=== PATIENT | male | born 1965 | race Caucasian/White ===

== ENCOUNTER → 2018-01-12 | Outpatient (CLI) | payer MEDICARE, OTHER ==
[~2018-01-12] MED LIST: ASPI81CH PO; ASPI81EC; ASPI81EC PO; CLON1; CLON1 PO; CYAN500 PO; EZET10-10; FISH1000 PO; GEMF600 PO; GILENYA PO; GILENYA0.5 MG PO; LEVSOD50; LEVSOD75 PO; LOXA10; OXYACE5T PO; PERP8 PO; VITAMIN D-32000 UNI1 PO; VITAMIN D3 PO
[2018-01-12 13:01] LABS: Bilirubin, Urine Neg (Neg); Blood, Urine Neg (Neg); Glucose Qualitative, Urine Neg (Neg); Ketones, Urine Neg (Neg); Leukocyte Esterase, Urine Neg (Neg); Nitrite, Urine Neg (Neg); Protein, Urine Neg (Neg); Specific Gravity, Urine 1.015 (1.003-1.022); Urobilinogen, Urine NORM (Normal)
[2018-01-12 13:21] LABS: Appearance, Urine Clear (Clear); Color, Urine Pale Yellow (P-Yellow)
== END | disposition home or self-care (01) ==
LOC: LAB 12:11
DX: R32 Unspecified urinary incontinence (principal)
CPT/HCPCS: 81003

== ENCOUNTER 2019-03-31 13:41 | Emergency (ER) | payer MEDICARE, OTHER ==
[~2019-03-31] VITALS: Ht 170.2 cm; Wt 72.6 kg
[2019-03-31 15:01] LABS: Anion Gap 7 mmol/L (6-16); Blood Urea Nitrogen 10 mg/dL (8-24); Bun/Creatinine Ratio 22.1 (12.0-20.0); CO2, Blood 23 mmol/L (21-32); Calcium, Blood 8.4 mg/dL (8.5-10.1); Chloride, Blood 107 mmol/L (98-108); Creatinine, Blood 0.45 mg/dL (0.60-1.20); Glomerular Filtration Rate >60 (60-); Glucose, Blood 125 mg/dL (70-99); Potassium, Blood 4.1 mmol/L (3.5-5.5); Sodium, Blood 137 mmol/L (136-145)
[2019-03-31 15:09] LABS: Source, Urine Catheter
[2019-03-31 15:12] LABS: Bilirubin, Urine Neg (Neg); Blood, Urine 5+ (Neg); Glucose Qualitative, Urine Neg (Neg); Ketones, Urine 1+ (Neg); Leukocyte Esterase, Urine 3+ (Neg); Nitrite, Urine Pos (Neg); Protein, Urine 3+ (Neg); Specific Gravity, Urine 1.005 (1.003-1.022); Urobilinogen, Urine NORM (Normal); pH, Urine 6.5 (5.0-8.0)
[2019-03-31 15:21] LABS: Appearance, Urine Cloudy (Clear); Color, Urine Yellow (P-Yellow)
[2019-03-31 15:26] LABS: Red Blood Cells, Urine 25-50 /hpf (0-2); White Blood Cells, Urine 50-100 /hpf (0-5)
[2019-03-31 15:27] LABS: Bacteria Mod /hpf; Squamous Epithelial Cells Not Seen /hpf (Few)
[2019-03-31] MEDS ORDERED: CEFD300 PO (15:31)
[2019-03-31] MEDS ORDERED: CLONAZEPAM TAB 1MG (20:43)
[2019-03-31] MEDS ORDERED: Nortriptyline H50 MG PO (20:43)
[2019-03-31] MEDS ORDERED: BACL20 (20:44)
[2019-03-31] MEDS ORDERED: MORP30ER (20:45)
[2019-03-31] MEDS ORDERED: ATORVASTATIN CA10 MG (20:45)
[2019-03-31] MEDS ORDERED: ATOR10 PO (20:45)
[2019-03-31] MEDS ORDERED: OXYC5 (20:46)
[2019-03-31] MEDS ORDERED: TRIDERM28.4 GM (20:47)
== END 2019-03-31 17:30 | disposition home or self-care (01) ==
LOC: ER 13:41
PROVIDERS: Emergency Medicine
DX: N39.0 Urinary tract infection, site not specified (principal); Z88.0 Allergy status to penicillin; Z88.8 Allergy status to other drugs, medicaments and biological substances; Z79.899 Other long term (current) drug therapy; Z79.82 Long term (current) use of aspirin; E03.9 Hypothyroidism, unspecified; F17.200 Nicotine dependence, unspecified, uncomplicated
CPT/HCPCS: 80048; 81001; 87077; 87086; 87186; 99283

== ENCOUNTER → 2019-04-12 | Outpatient (CLI) | payer MEDICARE, OTHER ==
[~2019-04-12] MED LIST changes: +ATOR10 PO; +ATORVASTATIN CA10 MG; +BACL20; +CEFD300 PO; +CLONAZEPAM TAB 1MG; +MORP30ER; +Nortriptyline H50 MG PO; +OXYC5; +TRIDERM28.4 GM
== END | disposition home or self-care (01) ==
LOC: LAB SHORT 18:32 → LAB 18:32
DX: N39.0 Urinary tract infection, site not specified (principal)
CPT/HCPCS: 87086

== ENCOUNTER → 2020-02-23 | Outpatient (CLI) | payer MEDICARE, OTHER ==
[2020-02-23 11:42] LABS: BASOPHILS ABSOLUTE AUTO 0.06 K/mm3 (0.00-0.23); BASOPHILS PERCENT AUTO 1 % (0-2); EOSINOPHILS ABSOLUTE AUTO 0.56 K/mm3 (0.00-0.68); EOSINOPHILS PERCENT AUTO 8 % (0-6); Hematocrit 40.2 % (37.0-53.0); Hemoglobin 12.6 g/dL (13.5-17.5); IMMATURE GRAN ABSOLUTE AUTO 0.02 K/mm3 (0.00-0.10); IMMATURE GRAN PERCENT AUTO 0 % (0-1); LYMPHOCYTES ABSOLUTE AUTO 2.02 K/mm3 (0.84-5.20); LYMPHOCYTES PERCENT AUTO 28 % (21-46); MONOCYTES ABSOLUTE AUTO 0.66 K/mm3 (0.16-1.47); MONOCYTES PERCENT AUTO 9 % (4-13); Mean Corpuscular HGB 28.5 pg (26.0-34.0); Mean Corpuscular HGB Conc 31.3 g/dL (31.5-36.5); Mean Corpuscular Volume 91 fL (80-100); Mean Platelet Volume 10.9 fL (9.1-12.4); NEUTROPHILS ABSOLUTE AUTO 3.86 K/mm3 (1.96-9.15); NEUTROPHILS PERCENT AUTO 54 % (41-73); Platelet Count 245 K/mm3 (150-400); RDW Coefficient Variation 14.7 % (11.7-14.2); RDW Standard Deviation 49.2 fL (35.1-46.3); Red Blood Cell Count 4.42 M/mm3 (4.30-5.90); White Blood Cell Count 7.18 K/mm3 (4.00-11.30)
== END | disposition home or self-care (01) ==
LOC: LAB 10:06 → LAB SHORT 10:06
PROVIDERS: Family Medicine
DX: D64.9 Anemia, unspecified (principal)
CPT/HCPCS: 85025

== ENCOUNTER → 2020-11-28 | Outpatient (CLI) | payer MEDICARE, OTHER ==
[2020-11-28 14:26] LABS: Cholesterol 139 mg/dL (50-200); HDL Cholesterol 47 mg/dL (>39); LDL/HDL RATIO 1.4; Low Density Lipoprotein Chol 66 mg/dL (0-110); Triglycerides 132 mg/dL (30-160); Very Low Density Lipoprot Chol 26 mg/dL (6-32)
== END | disposition home or self-care (01) ==
LOC: LAB 11:54 → LAB SHORT 11:54
PROVIDERS: Family Medicine
DX: E03.9 Hypothyroidism, unspecified (principal)
CPT/HCPCS: 80061; 84443

== ENCOUNTER → 2021-05-12 | Outpatient (CLI) | payer MEDICARE, OTHER ==
[2021-05-12 16:24] LABS: Hematocrit 37.9 % (37.0-53.0); Hemoglobin 12.1 g/dL (13.5-17.5); Mean Corpuscular HGB 28.9 pg (26.0-34.0); Mean Corpuscular HGB Conc 31.9 g/dL (31.5-36.5); Mean Corpuscular Volume 91 fL (80-100); Mean Platelet Volume 11.7 fL (9.1-12.4); Platelet Count 231 K/mm3 (150-400); RDW Coefficient Variation 14.8 % (11.7-14.2); RDW Standard Deviation 49.8 fL (35.1-46.3); Red Blood Cell Count 4.18 M/mm3 (4.30-5.90); White Blood Cell Count 5.43 K/mm3 (4.00-11.30)
[2021-05-12 18:22] LABS: Alanine Aminotransfer (ALT/SGP 37 U/L (12-78); Albumin, Blood 3.1 g/dL (3.4-5.0); Albumin/Globulin Ratio 0.7 (0.8-1.8); Alk Phos 123 U/L (50-136); Anion Gap 4 mmol/L (6-16); Aspartate Aminotrans (AST/SGOT 30 U/L (12-37); Bilirubin, Total 0.3 mg/dL (0.1-1.0); Blood Urea Nitrogen 9 mg/dL (8-24); Bun/Creatinine Ratio 20.8 (12.0-20.0); CO2, Blood 26 mmol/L (21-32); Calcium, Blood 9.1 mg/dL (8.5-10.1); Chloride, Blood 109 mmol/L (98-108); Creatinine, Blood 0.43 mg/dL (0.60-1.20); Globulin, Blood 4.4 g/dL (2.2-4.0); Glomerular Filtration Rate >60 (60-); Glucose, Blood 126 mg/dL (70-99); Potassium, Blood 4.1 mmol/L (3.5-5.5); Sodium, Blood 139 mmol/L (136-145); Total Protein, Blood 7.5 g/dL (6.4-8.2)
== END | disposition home or self-care (01) ==
LOC: LAB SHORT 15:21
PROVIDERS: Family Medicine
DX: R73.9 Hyperglycemia, unspecified (principal); Z79.899 Other long term (current) drug therapy
CPT/HCPCS: 80053; 83036; 85027

== ENCOUNTER 2022-01-18 09:47 | Inpatient (IN) | payer MEDICARE, OTHER ==
[~2022-01-18] VITALS: Ht 177.8 cm; Wt 97.5 kg
[~2022-01-18 09:47] MED LIST changes: +BACL10 PO; -BACL20; +CEFP200 PO; +LEVSOD112 PO; -LEVSOD75 PO; -MORP30ER; +MORP30ER PO; -OXYC5; +OXYC5 PO; -PERP8 PO; +Trilafon PO
[2022-01-18 11:06] LABS: Hematocrit 29.8 % (37.0-53.0); Hemoglobin 9.9 g/dL (13.5-17.5); Mean Corpuscular HGB 28.4 pg (26.0-34.0); Mean Corpuscular HGB Conc 33.2 g/dL (31.5-36.5); Mean Corpuscular Volume 85 fL (80-100); Mean Platelet Volume 10.1 fL (9.1-12.4); Platelet Count 322 K/mm3 (150-400); RDW Coefficient Variation 16.2 % (11.7-14.2); RDW Standard Deviation 50.2 fL (35.1-46.3); Red Blood Cell Count 3.49 M/mm3 (4.30-5.90); White Blood Cell Count 33.94 K/mm3 (4.00-11.30)
[2022-01-18 11:10] LABS: Source, Urine Foley catheter
[2022-01-18 11:19] LABS: Appearance, Urine Cloudy (Clear); Bilirubin, Urine Neg (Neg); Blood, Urine 5+ (Neg); Color, Urine Yellow (P-Yellow); Glucose Qualitative, Urine Neg (Neg); Ketones, Urine Neg (Neg); Leukocyte Esterase, Urine 3+ (Neg); Nitrite, Urine Neg (Neg); Protein, Urine 3+ (Neg); Specific Gravity, Urine 1.015 (1.003-1.022); Urobilinogen, Urine NORM (Normal)
[2022-01-18 11:33] LABS: Bacteria Many /hpf; Red Blood Cells, Urine 25-50 /hpf (0-2); Squamous Epithelial Cells Few /hpf (Few); White Blood Cells, Urine 50-100 /hpf (0-5)
[2022-01-18 11:35] LABS: Albumin, Blood 2.1 g/dL (3.4-5.0); Albumin/Globulin Ratio 0.4 (0.8-1.8); Bilirubin, Total 0.6 mg/dL (0.1-1.0); Bun/Creatinine Ratio 13.2 (12.0-20.0); Creatinine, Blood 1.82 mg/dL (0.60-1.20); Globulin, Blood 4.9 g/dL (2.2-4.0); Potassium, Blood 4.9 mmol/L (3.5-5.5)
[2022-01-18 11:41] LABS: BAND PERCENT MAN 26 % (0-8); BASOPHILS PERCENT MAN 0 % (0-2); EOSINOPHILS PERCENT MAN 0 % (0-6); LYMPHOCYTES ABSOLUTE MAN 2.03 K/mm3 (0.84-5.20); LYMPHOCYTES PERCENT MAN 6 % (21-46); MONOCYTES ABSOLUTE MAN 0.33 K/mm3 (0.16-1.47); MONOCYTES PERCENT MAN 1 % (4-13); NEUTROPHILS ABSOLUTE MAN 31.56 K/mm3 (1.96-9.15); SEG NEUTROPHILS PERCENT MAN 67 % (41-73); TOTAL CELLS COUNTED 100
--- NOTE | 2022-01-18 15:52 | NUR ---
PT ARRIVED TO THE MEDICAL FLOOR NFROM THE ER VIA GURNEY. PT IS ALERT MOSTLY NONVERBAL DOES ANSWER SOME YES/ NO QUESTIONS. PTS DAUGHTER AT THE BEDSIDE. PT ORIENTED TO THE ROOM LAYOUT AND CALL SYATEM. PT WAS GIVEN A BED BATH ON ARRIVAL TO THE ROOM. WILL CONTINUE TO MONITOR AND ASSESS FOR CHANGES
--- NOTE | 2022-01-18 18:04 | NUR ---
PT IS ALERT. PT IS MORE VERBALLY RESPONSIVE COMPARED TO EARLIER THIS AFTERNOON AND IS ANSWERING MORE THAN YES/NO QUESTIONS. THE PT APPEARS TO BE BREATHING EASILY ON RA. THE PT IS BEDREST DUE TO SEVERE MS. PT REPOSTIONED T/O THE SHIFT. THE PTS DAUGHTER IS AT THE BEDSIDE AT THIS TIME. CALL LIGHT IN REACH. WILL CONTINUE TO MONITOR AND ASSESS FOR CHANGES
[2022-01-18] MEDS ORDERED: DICLOFENAC SOD100 G1 TOP (19:07)
[2022-01-18] MEDS ORDERED: Oxycodone HCl20 M1 PO (19:11)
[2022-01-18] MEDS ORDERED: NYSTOP15 GM TOP (19:13)
[2022-01-18] MEDS ORDERED: PREGABALIN25 MG PO (19:14)
[2022-01-18] MEDS ORDERED: FUROSEMIDE20 MG PO (19:15)
[2022-01-18] MEDS ORDERED: CEFP200 PO (19:16)
--- NOTE | 2022-01-19 03:38 | NUR ---
SUMMARY: PT A/OX2-3, ANSWERS MOST Q'S APPROPRIATELY AND SPECIFIES NEEDS IN WHISPERED SPEECH. HE REMAINS ON BEDREST R/T SEVERE MS W/TURN SCHEDULE MAINTAINED AND CAREGIVER AT BEDSIDE ASSISTING W/ADL'S. EXT'S ELEVATED ON PILLOWS D/T EDEMA AND FOOT DROP OBSERVED TO BLE'S. MOUTH CARE ATTENDED TO FOR NPO STATUS PENDING ST EVAL. NS INFUSES AT 125 ML/HR. MEPILEX IS C/D/I TO BUTTOCKS, PHOTOS STILL NEED TAKEN OF BUTTOCKS W/NEXT DX CHANGE. CHRONIC SALGADO IS PATENT/DRAINING. PT WAS NSR/S.TACH AT 90'S-100'S BPM ON TELEMETRY. HE HAD POSITIVE BLOOD CX'S THIS SHIFT: GRAM+ BACILLI. PT ON LEVQUIN AND NO NEW ORDERS RECIEVED WNJESUS LARSON MADE AWARE. NO ACUTE CHANGES, VSS/AFEBRILE. WCTM AND REPORT TO DAY RN.
[2022-01-19 05:12] LABS: Hematocrit 32.1 % (37.0-53.0); Mean Corpuscular HGB 27.7 pg (26.0-34.0); Mean Corpuscular HGB Conc 31.2 g/dL (31.5-36.5); Mean Corpuscular Volume 89 fL (80-100); Mean Platelet Volume 10.6 fL (9.1-12.4); Platelet Count 296 K/mm3 (150-400); RDW Coefficient Variation 16.4 % (11.7-14.2); RDW Standard Deviation 53.4 fL (35.1-46.3); Red Blood Cell Count 3.61 M/mm3 (4.30-5.90); White Blood Cell Count 22.32 K/mm3 (4.00-11.30)
--- NOTE | 2022-01-19 05:36 | NUR ---
PT OBSERVED HYPERTENSIVE AND TACHYCARDIC THIS AM W/HR TRENDING UPWARD, 120'S-130'S BPM. HE HAD MINIMAL URINE OUTPUT TO SALGADO BAG DESPITE CONT IVF T/O NOCTE. EDEMA WAS ALSO NOTED TO BE WORSE TO SCROTUM, PENIS AND BLE'S. BLADDER SCAN PERFORMED AND >843 MLS RETAINED. THIS RN ATTEMPTED TO MANUALLY IRRIGATE SALGADO AFTER LEARNING FROM CAREGIVER THAT HE TYPICALLY HAS THIS PERFORMED DAILY AT 3PM. RN ABLE TO EXPEL APPROX 4O MLS SLUDGY, CLOUDY YELLOW URINE W/SEDIMENT BUT THEN URINE BEGAN LEAKING AROUND SALGADO AT MEATUS. WITH ASSIST OF HEATER HELPER WE ATTEMPTED TO MANUALLY IRRIGATE SALGADO X4 MORE TIMES AND URINE CONTINUED TO LEAK AROUND SALGADO INSERTION SITE. SALGADO WAS REPOSITIONED BUT IT CONTINUED TO NO LONGER BE PATENT. ALERTED TO THE ABOVE DETAILS AND ASSOCIATED SYMPTOMS/VITALS. NEW ORDERS RECIEVED TO REPLACE SALGADO AND COMMENCE CONTINUOUS BLADDER IRRIGATION W/PLAN TO REASSESS VITALS ONCE PATENT CATHETER OBTAINED. PT MEDICATED W/10MG ROXINOL FOR C/O BACK PAIN. HE CONT'S TO DENY ABDO/BLADDER DISCOMFORT DESPITE RETENTION BUT IS OBSERVED SOB. LS ARE NOT WORSE FROM INITIAL ASSESSMENT AND SPO2 REMAINS WNL ON RA. WCTM CLOSELY FOR CHANGES/WORSENING.
[2022-01-19 05:40] LABS: Albumin/Globulin Ratio 0.4 (0.8-1.8); Bilirubin, Total 0.4 mg/dL (0.1-1.0); Bun/Creatinine Ratio 17.5 (12.0-20.0); Calcium, Blood 7.7 mg/dL (8.5-10.1); Creatinine, Blood 1.94 mg/dL (0.60-1.20); Globulin, Blood 4.8 g/dL (2.2-4.0); Potassium, Blood 5.1 mmol/L (3.5-5.5); Total Protein, Blood 6.8 g/dL (6.4-8.2)
[2022-01-19 06:03] LABS: BAND PERCENT MAN 12 % (0-8); BASOPHILS PERCENT MAN 0 % (0-2); EOSINOPHILS PERCENT MAN 0 % (0-6); LYMPHOCYTES ABSOLUTE MAN 0.66 K/mm3 (0.84-5.20); LYMPHOCYTES PERCENT MAN 3 % (21-46); MONOCYTES ABSOLUTE MAN 0.66 K/mm3 (0.16-1.47); MONOCYTES PERCENT MAN 3 % (4-13); NEUTROPHILS ABSOLUTE MAN 20.98 K/mm3 (1.96-9.15); SEG NEUTROPHILS PERCENT MAN 82 % (41-73); TOTAL CELLS COUNTED 100
--- NOTE | 2022-01-19 06:44 | NUR ---
PREVIOUS SALGADO DC'D D/T NO LONGER PATENT. SOLID TIRE TUBER MACHINE OPERATOR (DRAGAN VALVERDE) ATTEMPTED TO PLACE 3WAY SALGADO FOR CONTINUOUS BLADDER IRRIGATION W/MY ASSISTANCE. PT IS SO SWOLLEN THAT MEATUS IS NEARLY IMPOSSIBLE TO VISUALIZE. LARGE AMT OF RESISTANCE FELT W/EVERY ATTEMPT TO ADVANCE SALGADO AND CATHETER KEPT COILING INSIDE PENIS. FINALLY STAFF WERE ABLE TO ADVANCE SALGADO AFTER MULTIPLE FAILED ATTEMPTS UNTIL URINE FLOW OBTAINED. APPROXIMATELY 30 MLS VERY THICK, MUCOUSY AND SLUDGY BROWN/YELLOW URINE OUTPUT OBTAINED IMMMEDIATELY THEN FLOW STOPPED. BLADDER IRRIGATION TRIALED BUT NO URINE OUTPUT OBSERVED AND IRRIGATION WOULDN'T FLOW AT ALL. STAFF ATTEMPTED TO MANUALLY IRRIGATE 3WAY SALGADO W/O SUCCESS AND INSTEAD AGAIN BEGAN LEAKING AROUND CATHETER AT URINARY MEATUS. IRRGATION CLAMPED AND ALERTED TO ENTIRE SITUATION WELL TACHYCARDIA PERSISTING, HR SUSTAINING 130'S. SAID SHE DISCUSS EVENTS W/ AND PT MAY NEED UROLOGY CX/SP CATH PLACEMENT. NO ADDITIONAL ORDERS OBTAINED.
--- NOTE | 2022-01-19 07:00 | NUR ---
ROUNDED ON PT W/DAY NEW CAR INSPECTOR AND OBSERVED NEW URINE OUTPUT TO CATHETER AND DRAINAGE BAG. CONTINUOUS IRRIGATION TRIALED AGAIN AND SALGADO APPEARS TO BE DRAINING YELLOW THICK URINE W/SEDIMENT AT THIS TIME. IT DRAINS SLOWLY BUT DOES SEEM TO BE PATENT AND WORKING. WILL ENSURE DAY RN IS AWARE TO MONITOR THIS CLOSELY TO PREVENT ANY ADDITIONAL RETENTION OR FLUID OVERLOAD.
--- NOTE | 2022-01-19 14:37 | NUR ---
PALLIATIVE CARE CONSULT PLACED AND PALLIATIVE CARE RN SPOKE WITH THE PATIENT AND DAUGHTER IN THE ROOM. THE PATIENT REPEATEDLY STATED THAT HE DOES NOT WANT A SUPRAPUBIC CATHETER PLACED. SALGADO CATHETER HAS VERY LITTLE OUTPUT THAT IS CLOUDY AND ELIZABETH IN COLOR. DR. BULLOCK NOTIFIED OF POOR OUTPUT. DR. BULLOCK STATED THAT SHE CALLED DR. LOZANO AND ASKED THAT HE SEE THE PATIENT. PATIENT'S PENIS AND SCROTUM ARE SWOLLEN AND WARM TO THE TOUCH. THERE IS A LITTLE URINE IS PUDDLING AROUND THE MEATUS AND FALLING DOWN TO THE PADS ON THE BED. PATIENT IS POSITIONED ON HIS RIGHT SIDE AT THIS TIME TO SEE IF THAT WILL HELP WITH DRAINING. WILL CONTINUE TO MONITOR
--- NOTE | 2022-01-19 16:02 | NUR ---
Summary of two visits and multiple case conferences with Dr GRAHAM and family. Pt is 57 year old suffering with MS, admitted with urosepsis and bladder obstruction. He has had an indwelling benjamin catheter in the home managed by CGs and [facility] but recurrent obstruction of catheter is occuring now. Intervention offered/available at this time per provider, is placement of a suprapubic catheter. Pt is adamently refusing to consent to s/p cath placement. Visit made to explore reasons for objections and to answer questions. My first visit was made at the bedside with rogerio, RN and pt. Pt was sleepy but woke easily and agreed to discuss. He verbalized fear of pain with procedure and we discussed premedication for pain and anxiety available. For every solution offered to pt he frequently answers "bullshit" or "that's not true." He believes that the s/p cath will be painful also. He has decreased sensation and stated he feels pressure but not pain with distended bladder. Discussed the probability of extreme pain with Urinary tract obstruction, UTI, sepsis and hydronephrosis, leading to pt's demise in a short amount of time if he does not have a patent catheter/tube to drain urine. Pt states he doesn't care. He is very child like and clearly not able to accept factual information re: consequences of this choice. He is alert and oriented x 4 and is not delusional. I discussed the option of declining tx but still affording himself relief of suffering with s/p catheter placement. He also wants his benjamin catheter removed and not reinserted. Rogerio enlisted the input of pt's caregivers, who pt likes and trusts but they were not able to sway him either. Second visit made outside of room with rogerio, pt's ex- (who was there to support rogerio) and two of pt's caregivers. Comfort Care, hospice, s/s management discussed, as well as review of options discussed in pt's room earlier. Plan for [facility] to visit again in the am. Cg feels if pt becomes uncomfortable enough with bladder obstruction that he may consent at a later time. Rogerio is appropriately tearful trying to navigate this situation with her dad. She is supportive of him choosing to forego care in general as his quality of life has been extremely poor for years now. He is bedbound and does not have use of ryan UE either due to MS. He also suffers with bipolar disorder. However, she, as well as CG's are very distraught and uncomfortable with pt declining a procedure that will lessen his suffering. Plan to re-eval in am to see if pt has changed his mind. Report on my visits provided to and pt's RN.
--- NOTE | 2022-01-19 16:36 | NUR ---
DR. LOZANO CONSULTED BY TYING IN MACHINE OPERATOR. DR. BULLOCK TOP THE PATIENT'S ROOM AT 1615 TO SPEAK WITH HIM ABOUT SUPRAPUBIC CATHETER PLACEMENT. PATIENT CONTINUED TO DENY THE NEED FOR SUPRAPUBIC CATHETER. PATIENT'S DAUGHTER WAS A THE BEDSIDE AT THIS TIME. DR. BULLOCK SPOKE WITH THE DAUGHTER ABOUT THE POSSIBILITY OF IF THE PATIENT REFUSES TREATMENT. DR. BULLOCK NOTIFIED OF PATIENT'S HR OF 137 BPM PER STAFF AIR DEFENSE OFFICER AND SAID TO CONTINUE WITH CARDIZEM PO. PATIENT IS ALERT AND ORIENTED AT THIS TIME. HE'S ORIENTED TO SELF, FAMILY, PLACE AND SITUATION. THE PATIENT'S DAUGHTER BROUGHT IT TO DR. BULLOCK'S ATTENTION THAT THE PATIENT IS TALKING TO HIMSELF AT TIMES. BLADDER SCAN OBTAINED AT 16:20 WHICH SHOWS >999 ML URINE IN THE PATIENT'S BLADDER. WILL CONTINUE TO MONITOR
--- NOTE | 2022-01-19 18:50 | NUR ---
PATIENT IS ALERT. HE IS CONFUSED, HIS SPEECH IS NONSENSICAL. WHEN TALKING TO INTERVENTIONAL RADIOLOGY'S BAKARI MCDANIEL THE PATIENT WAS ABLE TO STATE HIS NAME AND THAT HE'S AT [facility] BUT WAS UNABLE TO STATE WHY HE IS HERE AND THE RISKS OF NOT HAVING A SUPRAPUBIC CATHETER PLACED. THE PATIENT'S DAUGHTER STATED THAT SHE WOULD LIKE THE PATIENT TO HAVE THIS PROCEDURE TOMORROW. DR. LOZANO CONTACTED ON HIS CELL PHONE AT 19:12 ON 01/19/22 AND NOTIFIED THAT THE PATIENT'S DAUGHTER IS AGREEABLE TO THE PROCEDURE TOMORROW. RN ATTEMPTED TO MANUALLY IRRIGATE WITH 30 ML STERILE WATER WITH NO RETURN. RN ATTEMPTED TO DEFLATE BALLON AND REPOITION CATHETER WITH NO DRAINING. RN CLEANED KATHERINE AREA. URINE IS PUDDLING IN FOLD OF PENIS AND FALLING INTO GROIN FOLDS. ABSORBED WITH PADS. REPORT GIVEN TO GRAHAM LOWRY.
--- NOTE | 2022-01-19 19:55 | NUR ---
PT SHOWING S/S WORSENING SEPSIS: CONTINUOUS BLADDER IRRIGATION REMAINS CLAMPED D/T 3 WAY SALGADO SILL NOT PATENT OR DRAINING. THIS RN ATTEMPTED TO REPOSITION PATIENT AND SALGADO WHILE MANUALLY IRRIGATING CATHETETER MULTIPLE TIMES. I WAS ONLY ABLE TO EXPEL 20 MLS OF 40 MLS FLUSHED AND THEN THERE WAS NO OUTPUT VIA CATHETER WITH ANY ADDITIONAL ATTEMPTS AT IRRIGATION. HOWEVER URINE LEAKED AROUND SALGADO AT MEATUS THOUGH AMT IS NEGLIBLE. BLADDER SCAN NOW >1100 MLS AND PT C/O ABDO AND BACK PAIN. PT TACHYPNEIC W/SHORT SHALLOW RESPS, RR 24 AND DESATTING TO 84% ON RA. RT PLACED PT ON 2L O2 VIA NC TO MAINTAIN SPO2 WNL. ROXINOL RECIEVED PER EMAR FOR AIR HUNGER AND PAIN. BP TRENDING DOWN, NOW 110/93 AND HR TRENDING UPWARD, NOW 140'S AND SUSTAINING. PT WAS PREVIOUSLY S.TACH AT 130'S FOR MOST OF SHIFT. INTENDS TO PLACE SP CATHETER IN AM THOUGH THIS RN HAS CONCERN REGARDING PT STATUS T/O NOCTE GIVEN WORSENING VITALS AND PT PRESENTATION. YOUTH CARE WORKER (DRAGAN VALVERDE) AWARE AND SHE INTENDS TO DISCUSS THESE EVENTS AND FINDING W/HOSPITALIST AND . PT LIKELY NEEDS HIGHER LEVEL OF CARE IF PROCEDURE CAN'T BE COMPLETED THIS EVENING. WCTM CLOSELY AND ROUND FREQUENTLY. FAMILY REMAINS AT BEDSIDE.
--- NOTE | 2022-01-19 20:30 | NUR ---
PT'S HR IS IN 140'S, HAS BEEN IN 130'S FOR DAYSHIFT. RESPIRATIONS ARE MID 20'S. PT WAS ON RA, IS NOW ON 2L NC. PRIMARY RN, ALEN Loera. ATTEMPTED FLUSHING CBI AND REPOSITIONING THE PT, NO FURTHER OUTPUT FOR US, NOT MUCH OUTPUT FOR DAYS W/CBI. SEE PRIMARY RN'S NOTES FOR DAYS AND FOR THIS SHIFT FOR FURTHER DETAILS ON WHAT OCCURED FOR THEM. BLADDER SCAN FOR US WAS > 1000. SPOKE WITH DR DELUNA AND DR LOZANO REGARDING WHAT IS HAPPENING WITH THE PT AT THIS TIME. PT IS TO HAVE A SP CATH PLACED IN THE AM WITH DR LOZANO. PT IS TO BE TRANSFERRED PCU STATUS FOR CLOSER MONITORING AND MORE ONE ON ONE CARE R/T SEPSIS BECOMING MORE SEVERE, COMPLICATED CBI, AND SEVERE URINE RETENTION. REO ASSET MANAGER UPDATED. FAMILY UPDATED.
--- NOTE | 2022-01-19 20:45 | NUR ---
REPORT PROVIDED TO ICU 7 RN (FREDDY FREEMAN) AND PT TO BE TRANSFERRED PCU STATUS. HE APPEARS MUCH MORE COMFORTABLE AT THIS TIME AND IS SLEEPING W/O S/S PAIN OR RESPIRATORY DISTRESS. FAMILY AWARE OF T/F AND ICU VISITOR POLICY. THEY PLAN TO ACCOMPANY PT TO ICU THEN RETURN IN THE AM TO GIVE PROCEDERE CONSENT AND CONSULTATION.
--- NOTE | 2022-01-19 21:15 | NUR ---
ASSUMED CARE/CATHETER/HR AND RHYTHM REPORT RECEIVED FROM GRAHAM MUNOZ ON MEDICAL FLOOR. PATIENT ARRIVED TO ICU AWAKE AND ON 2LPM VIA NC. VSS EXCEPT FOR TACHYCARDIC W/ RATE 130'S-140'S. 3-WAY URINARY CATHETER IN PLACE WITH IRRIGATION BAGS CLAMPED AND NO OUTPUT NOTED UNTIL AFTER TURNING THE PATIENT IN BED REPEATEDLY TO REMOVE LINENS UNDRENEATH. AFTER THIS MANEUVERING, THERE WAS 20ML URINE OUT. THERE WAS A MODERATE AMOUNT OF URINE SATURATING THE PADS IN PLACE AROUND CATHETER INSERTION SITE. CALL MADE TO DR. DELUNA TO UPDATE ON PATIENT STATUS OF SCANT URINE OUTPUT-ASKED IF WE SHOULD REQUEST DR. LOZANO COME IN TONIGHT OR ATTEMPT TO TRANSFER PATIENT OUT TO ANOTHER FACILITY WITH UROLOGIST AVAILABLE. CALL MADE TO 10 HOSPITALS WITH NO BED AVAILABILITY AND A 5-[address] DELUNA UPDATED WITH THE ABOVE INFORMATION AND BLADDER SCAN RESULTS OF >933ML. ORDERS OBTAINED TO CHANGE CATHETER. 3-WAY REMOVED AND ATTEMPTED TO PLACE A COUDE SALGADO-UNSUCCESSFUL WITH AN 18F AND [address]F. DR. DELUNA UPDATED AND TO BEDSIDE TO EVALUATE PATIENT. DECISION WAS MADE TO MONITOR PATIENT T/O NIGHT AND UPDATE HOSPITALIST NEEDED TO DETERMINE WHETHER DR. LOZANO NEEDS TO BE CONTACTED-OTHERWISE PLAN TO PLACE SUPRAPUBIC CATHETER IN THE MORNING REMAINS IN PLACE. PATIENT AND PATIENTS DAUGHTERS NOTIFIED OF THIS PLAN. JUST PRIOR TO DR. DELUNA ARRIVING TO BEDSIDE, PATIENT'S RATE CHANGED FROM 120'S-140'S UP TO 180'S-190'S. EKG SHOWED A FIB RHYTHM. LOPRESSER 5MG IV X [address] DELUNA ORDER. RATE CAME DOWN TO 90'S-110'S AND CONVERTED TO SINUS RHYTHM. NO OTHER EVENTS SUCH THIS OCCURRED.
[2022-01-19 22:41] LABS: SARS-Cov-2 (COVID-19) PCR, MMC NEGATIVE (NEGATIVE)
[2022-01-20 00:15] LABS: Hematocrit 28.3 % (37.0-53.0); Hemoglobin 9.5 g/dL (13.5-17.5); Mean Corpuscular HGB 27.9 pg (26.0-34.0); Mean Corpuscular HGB Conc 33.6 g/dL (31.5-36.5); Mean Platelet Volume 10.3 fL (9.1-12.4); Platelet Count 277 K/mm3 (150-400); RDW Coefficient Variation 15.9 % (11.7-14.2); RDW Standard Deviation 48.5 fL (35.1-46.3); White Blood Cell Count 14.88 K/mm3 (4.00-11.30)
[2022-01-20 00:33] LABS: Mean Corpuscular Volume 83 fL (80-100)
[2022-01-20 00:34] LABS: Albumin, Blood 1.8 g/dL (3.4-5.0); Albumin/Globulin Ratio 0.4 (0.8-1.8); Bilirubin, Total 0.4 mg/dL (0.1-1.0); Bun/Creatinine Ratio 15.7 (12.0-20.0); Calcium, Blood 7.6 mg/dL (8.5-10.1); Creatinine, Blood 2.61 mg/dL (0.60-1.20); Globulin, Blood 4.5 g/dL (2.2-4.0); Magnesium, Blood 2.1 mg/dL (1.6-2.4); Potassium, Blood 5.3 mmol/L (3.5-5.5); Total Protein, Blood 6.3 g/dL (6.4-8.2)
[2022-01-20 00:56] LABS: Source, Urine Clean Catch
[2022-01-20 01:00] LABS: Appearance, Urine Turbid (Clear); Bilirubin, Urine Neg (Neg); Blood, Urine 5+ (Neg); Glucose Qualitative, Urine Neg (Neg); Ketones, Urine Neg (Neg); Leukocyte Esterase, Urine 3+ (Neg); Nitrite, Urine Neg (Neg); Protein, Urine 3+ (Neg); Urobilinogen, Urine NORM (Normal)
[2022-01-20 01:09] LABS: Color, Urine Pale Yellow (P-Yellow)
[2022-01-20 01:14] LABS: White Blood Cells, Urine TNTC /hpf (0-5)
[2022-01-20 01:15] LABS: Bacteria Many /hpf; Squamous Epithelial Cells Not Seen /hpf (Few)
[2022-01-20 01:16] LABS: Amorphous Light (0-Heavy)
--- NOTE | 2022-01-20 05:42 | NUR ---
SHIFT SUMMARY PATIENT CATHETER MOSTLY DRAINS ONLY WHEN TURNING SIDE TO SIDE. STILL LEAKING AROUND URETHRA. TOTAL MEASURED URINE OUTPUT 105ML. VSS STABLE-PLAN TO TRAFFIC POLICE OFFICER TODAY FOR SUPRAPUBIC CATHETER PLACEMENT. PATIENT BEGAN SPITTING UP SPUTUM THIS MORNING. MODERATE AMOUNTS OF THICK WHITE SPUTUM. AUDIBLE RATTLING PRESENT. SPEECH EVAL SHOULD BE REEVALUATED PRIOR TO ADMINISTERING PO MEDS. NO OTHER CHANGES DURING SHIFT.
[2022-01-20 08:49] LABS: Hematocrit 27.9 % (37.0-53.0); Hemoglobin 9.1 g/dL (13.5-17.5); Mean Corpuscular HGB 27.7 pg (26.0-34.0); Mean Corpuscular HGB Conc 32.6 g/dL (31.5-36.5); Mean Corpuscular Volume 85 fL (80-100); Mean Platelet Volume 10.6 fL (9.1-12.4); Platelet Count 323 K/mm3 (150-400); RDW Coefficient Variation 16.2 % (11.7-14.2); RDW Standard Deviation 50.5 fL (35.1-46.3); Red Blood Cell Count 3.28 M/mm3 (4.30-5.90); White Blood Cell Count 17.61 K/mm3 (4.00-11.30)
--- NOTE | 2022-01-20 08:52 | NUR ---
ASSUMED CARE REPORT FROM FREDDY STEVENSON AT 0700. PT RESTING IN BED. FAMILY AT BEDSIDE. PT A&OX 3. ANSWERS QUESTIONS APPROPRIATELY, FOLLOWS COMMANDS (BLINKS, OPENS MOUTH). NO MOVEMENT TO EXT, BASELINE D/T MS. ABLE TO MAKE NEEDS KNOWN. C/O CHRONIC PAIN TO HIP. LUNGS DIM IN BASES, CLEAR IN UPPER LOBES. OCCASIONAL COUGH c WHITE SPUTUM, DAUGHTER AT BEDSIDE ASSISTING c SUCTIONING SECRETIONS. ST ON MONITOR, RATE 100-100'S. BP STABLE. ABD OBESE, SOFT, NON TENDER. BT X 4. SALGADO IN PLACE, SCANT URINE IN DRAIN TUBE, LEAKING AROUND URETHRA. PLAN FOR SUPRAPUBIC CATH THIS SHIFT. 2+ EDEMA TO ALL EXT, CONTRACTED. PRESSURE SORE TO COCCXY, SEE PHOTOS AND SKIN ASSESSMENT. WILL CONTINUE TO MONITOR.
[2022-01-20 09:06] LABS: Albumin, Blood 1.9 g/dL (3.4-5.0); Albumin/Globulin Ratio 0.4 (0.8-1.8); Bilirubin, Total 0.5 mg/dL (0.1-1.0); Bun/Creatinine Ratio 18.8 (12.0-20.0); Creatinine, Blood 2.24 mg/dL (0.60-1.20); Globulin, Blood 4.9 g/dL (2.2-4.0); Potassium, Blood 5.1 mmol/L (3.5-5.5); Total Protein, Blood 6.8 g/dL (6.4-8.2)
[2022-01-20 09:14] LABS: BAND PERCENT MAN 9 % (0-8); BASOPHILS PERCENT MAN 0 % (0-2); EOSINOPHILS PERCENT MAN 0 % (0-6); LYMPHOCYTES ABSOLUTE MAN 1.23 K/mm3 (0.84-5.20); LYMPHOCYTES PERCENT MAN 7 % (21-46); MONOCYTES ABSOLUTE MAN 0.17 K/mm3 (0.16-1.47); MONOCYTES PERCENT MAN 1 % (4-13); SEG NEUTROPHILS PERCENT MAN 83 % (41-73); TOTAL CELLS COUNTED 100
--- NOTE | 2022-01-20 11:39 | NUR ---
SUPRAPUBIC CATH PT BACK TO ROOM FROM [employer] SALES REPRESENTATIVE. SUPRAPUBIC IN PLACE, DRAINING TURBID YELLOW URINE c SEDIMENT. SENT TO LAB. SITE WNL. SALGADO REMOVED. VSS. WILL CONTINUE TO MONITOR.
[2022-01-20 11:41] LABS: Source, Urine Suprapubic Cath
[2022-01-20 11:49] LABS: Appearance, Urine Turbid (Clear); Bilirubin, Urine Neg (Neg); Blood, Urine 5+ (Neg); Color, Urine Yellow (P-Yellow); Glucose Qualitative, Urine Neg (Neg); Ketones, Urine 1+ (Neg); Leukocyte Esterase, Urine 3+ (Neg); Nitrite, Urine Neg (Neg); Protein, Urine 3+ (Neg); Urobilinogen, Urine NORM (Normal)
[2022-01-20 12:10] LABS: White Blood Cells, Urine TNTC /hpf (0-5)
[2022-01-20 12:11] LABS: Bacteria Many /hpf; Hyaline Casts 0-2 /lpf (0-2); Mucus Heavy (0-Heavy); Squamous Epithelial Cells Not Seen /hpf (Few)
--- NOTE | 2022-01-20 15:21 | NUR ---
SHIFT SUMMARY/TRANSFER TO MEDICAL FLOOR SUPRAPUBIC CATH PLACED THIS SHIFT, SITE WNL, 1400 ML CLOUDY YELLOW URINE OUT. SPEECH REEVAL, DIET ADVANCED TO [facility] SOFT, DAUGHTER ASSISTED PT TO EAT YOGURT, TOLERATED WELL. NO OTHER ACUTE CHANGES. REPORT TO WARREN STEVENSON. PT TRANSFERRED TO [facility]. ALL BELONGINGS SENT c PT.
--- NOTE | 2022-01-20 15:50 | NUR ---
REPORT RECEIVED FROM [facility]. PT TX TO ROOM 306. PT TX TO BED USING LIFT. PT AWAKE UPON ARRIVAL ANSWERS QUESTIONS BUT APPEARS SLEEPY. SUPRAPUBIC CATHETER PATENT AND DRAINING CLEAR YELLOW URINE.
--- NOTE | 2022-01-20 17:18 | NUR ---
SHIFT SUMMARY: PT A/O X4 BEDREST/LIFT PT. TRANSFERRED TO MEDICAL UNIT THIS AFTERNOON. SUPRAPUBIC CATHETER PATENT AND DRAINING CLEAR YELLOW URINE AT THIS TIME. DRESSING CDI. PT CONTINUES TO BE GROGGY POST OP BUT ABLE TO AWAKEN EASILY. SISTER IN ROOM WITH PT AT THIS TIME. PT DENIES PAIN/N/V. PT DENIES ANY CONCERNS OTHER THAN HE FEELS HUNGRY. ADVISED HIM DINNER WOULD BE HERE SOON AND HE WAS OKAY WITH WAITING FOR DINNER TO ARRIVE. WILL REPORT TO ONCOMING RN.
[2022-01-21 06:11] LABS: Hematocrit 24.1 % (37.0-53.0); Hemoglobin 7.9 g/dL (13.5-17.5); Mean Corpuscular HGB Conc 32.8 g/dL (31.5-36.5); Mean Corpuscular Volume 86 fL (80-100); Mean Platelet Volume 10.3 fL (9.1-12.4); Platelet Count 340 K/mm3 (150-400); RDW Coefficient Variation 16.3 % (11.7-14.2); RDW Standard Deviation 50.6 fL (35.1-46.3); Red Blood Cell Count 2.82 M/mm3 (4.30-5.90); White Blood Cell Count 11.37 K/mm3 (4.00-11.30)
--- NOTE | 2022-01-21 06:29 | NUR ---
SUMMARY PAIN MANAGED WELL THROUGHOUT SHIFT. PT SUPRA PUBIC CATH DRAINING WELL. PT REPOSITIONED FREQUENTLY. NO NEW ISSUES NOTED.
[2022-01-21 07:34] LABS: Magnesium, Blood 2.5 mg/dL (1.6-2.4)
[2022-01-21 08:23] LABS: Albumin, Blood 1.7 g/dL (3.4-5.0); Albumin/Globulin Ratio 0.4 (0.8-1.8); Bilirubin, Total 0.4 mg/dL (0.1-1.0); Calcium, Blood 7.8 mg/dL (8.5-10.1); Creatinine, Blood 0.7 mg/dL (0.60-1.20); Globulin, Blood 4.7 g/dL (2.2-4.0); Potassium, Blood 3.6 mmol/L (3.5-5.5); Total Protein, Blood 6.4 g/dL (6.4-8.2)
--- NOTE | 2022-01-21 18:19 | NUR ---
SHIFT SUMMARY: PT A/O X3 LIFT PT, PLEASANT AND COOPERATIVE WITH CARE. SUPRAPUBIC CATHETER PATENT AND DRAINING DARK YELLOW URINE AT TIMES IS CLOUDY OR HAS MUCOUS. PT HAD BURNING PAIN IN URETHRA THIS AM AND LIDOCAINE UROJET ADMINISTERED AND PT HAS NOT COMPLAINED OF PAIN SINCE. PT FAMILY IS REPORTING HE IS HAVING AUDITORY HALLUCINATIONS AT THIS TIME, HE HAS HAD NO S/S OF ANXIETY FROM HALLUCINATIONS WHILE FAMILY HAS BEEN PRESENT THEY ARE ABLE TO CONSOLE HIM IF NEEDED. FAMILY REPORT THESE HALLUCINATIONS ARE NORMAL IF HE IS NOT ON PSYCH MEDICATIONS. PT HAS NOT HAD A BM IN 5 DAYS AND IS NOW HAVING A GOOD APPETITE, MAY NEED BOWEL PROTOCOL INITIATED. FAMILY ARE IN ROOM WITH PT AT SHIFT END ASSISTING HIM WITH EATING. NO CONCERNS AT THIS TIME AND PT IS EATING WELL.
--- NOTE | 2022-01-22 05:21 | NUR ---
A&O TO SELF, FAMILY AND EVENT. V/S WNL. SOFT MECHANICAL DIET; PILLS CRUSHED IN YOGURT. FLACCID EXTREMITIES AND CONTRACTURES TO FEET BILAT. MEPILEX DRESSING TO BOTTOM: C/D/I. TELE: SR @HR OF 88 BPM. POWERGLIDE TO L) UPPER ARM AND IV TO R) FA. SUPRAPUBIC CATH IN SITU AND DRAINING YELLOW URINE IN GOOD AMOUNTS. REPOSITIONED Q2HRS. ORAL CARE PROVIDED. PRN ROXANOL & IV FENTANYL GIVEN FOR PAIN. NO BM THIS SHIFT. WILL CONTINUE TO MONITOR.
[2022-01-22 06:20] LABS: Hematocrit 24.1 % (37.0-53.0); Hemoglobin 7.7 g/dL (13.5-17.5); Mean Corpuscular HGB 27.7 pg (26.0-34.0); Mean Corpuscular Volume 87 fL (80-100); Mean Platelet Volume 10.4 fL (9.1-12.4); Platelet Count 367 K/mm3 (150-400); RDW Coefficient Variation 16.4 % (11.7-14.2); RDW Standard Deviation 52.3 fL (35.1-46.3); Red Blood Cell Count 2.78 M/mm3 (4.30-5.90); White Blood Cell Count 6.79 K/mm3 (4.00-11.30)
[2022-01-22 06:37] LABS: Albumin, Blood 1.7 g/dL (3.4-5.0); Albumin/Globulin Ratio 0.4 (0.8-1.8); Bilirubin, Total 0.4 mg/dL (0.1-1.0); Creatinine, Blood 0.44 mg/dL (0.60-1.20); Globulin, Blood 4.6 g/dL (2.2-4.0); Potassium, Blood 3.6 mmol/L (3.5-5.5); Total Protein, Blood 6.3 g/dL (6.4-8.2)
--- NOTE | 2022-01-22 15:39 | NUR ---
SHIFT SUMMARY- PT A/O, SLOW TO RESPOND AT TIMES BUT ANSWERS APROPRIATELY. PT MEDICATED WIH UROJET TO PAIN TO URETHRA, PT REPORTS IMPROVED AFTER. PT STARTED BACK ON HOME MS CONTIN AND BACLOFEN. FLACCID BLE AND BUE. CONTRACTURES TO BILATERAL FEET. 3+ EDEMA TO BUE AND BILATERAL FEET. LS CLEAR/ DIMINISHED ON ROOM AIR. TELE SR AT 96. PT WITH GOOD URINE OUTPUT IN SP CATH, URINE CLEAR YELLOW IN COLOR. FAMILY AT BEDSIDE T/O THE DAY. PT DIET UPGRADED TO SOFT. NO OTHER ACUTE CHANGES THIS SHIFT. POSSIBLE D/C HOME TOMORROW.
--- NOTE | 2022-01-23 00:52 | NUR ---
01/22/2022 @ 8, PT'S FAMILY MEMBER STEPPED OUT OF ROOM SEEKING RN. FAMILY MEMBER CONCERNED. THIS RN CHECKED ON PT. PT UNABLE TO FOLLOW VERBAL COMMANDS. PUPILS PINPOINT. PT UNABLE TO VERBALLY COMMUNICATE. V/S WNL. BP: 149/92: MAP: 112. HR: 105. R: 18. O2 SAT 96% ON RA. SLIGHTLY R) SIDE OF FACE DROOPED NOTED. CHARGE NURSE, JERALD IN PT'S ROOM CLEANER INDUSTRIAL COMPLETED NEURO ASSESSMENT. @ 2129, DR. MOCK NOTIFIED OF ACUTE CHANGES. @ 2139, PROVIDER CAME UP AND ASSESSED PT. CT OF HEAD W/O CONTRAST ORDERED AND ENTERED BY PROVIDER. @ 2209, GAMING FLOOR SUPERVISOR ARRIVED AND TOOK PT DOWNSTAIRS FOR CT OF HEAD. AFTER 15 MINS WITHIN EVENT, PT CAME OUT OF IT. PT BACK TO BASELINE FUNCTION. WILL CONTINUE TO MONITOR.
--- NOTE | 2022-01-23 04:50 | NUR ---
A&0 TO SELF, SITUATION, PLACE. CONFUSED AT TIMES. ACUTE CHANGE NOTED; REFER TO NURSE'S NOTES FOR DETAILS; CT OF HEAD COMPLETED; PENDING RESULTS. V/S WNL. MECHANICAL SOFT DIET, PILLS WHOLE IN YOGURT OR PUDDING. POWERGLIDE TO L) UPPER ARM AND IV TO R)FA. TOTAL CARE. PRN MS CONTIN GIVEN FOR PAIN. PRN UROJET GIVEN FOR URETHRAL DISCOMFORT/PAIN PER EMAR. SUPRA-PUBIC CATH TO R) SIDE OF ABDOMEN DRAINING CLOUDY YELLOW URINE: 1000 ML THIS SHIFT. NO BM THIS SHIFT. REPOSITIONED Q2HRS. WILL CONTINUE TO MONITOR.
[2022-01-23 08:08] LABS: Hematocrit 26.1 % (37.0-53.0); Hemoglobin 8.2 g/dL (13.5-17.5); Mean Corpuscular HGB 27.3 pg (26.0-34.0); Mean Corpuscular HGB Conc 31.4 g/dL (31.5-36.5); Mean Corpuscular Volume 87 fL (80-100); Mean Platelet Volume 9.7 fL (9.1-12.4); Platelet Count 437 K/mm3 (150-400); RDW Coefficient Variation 16.4 % (11.7-14.2); RDW Standard Deviation 51.8 fL (35.1-46.3)
[2022-01-23 08:28] LABS: Albumin/Globulin Ratio 0.4 (0.8-1.8); Bilirubin, Total 0.4 mg/dL (0.1-1.0); Bun/Creatinine Ratio 18.1 (12.0-20.0); Calcium, Blood 7.6 mg/dL (8.5-10.1); Creatinine, Blood 0.39 mg/dL (0.60-1.20); Globulin, Blood 4.8 g/dL (2.2-4.0); Potassium, Blood 3.6 mmol/L (3.5-5.5); Total Protein, Blood 6.8 g/dL (6.4-8.2)
[2022-01-23] MEDS ORDERED: DILT120 PO (12:30)
[2022-01-23] MEDS ORDERED: CIPR500 PO (12:30)
--- NOTE | 2022-01-23 13:39 | NUR ---
DISCHARGE INSTRUCTIONS REVIEWED WITH PT, DAUGHTER AND EX . RX FAXED TO [facility]. POWERGLIDE DC'D INTACT. PT REPORTS HE IS READY TO GO HOME AND PT AND FAMILY HAVE NO CONCERNS AT THIS TIME. PT DC'D HOME VIA [facility] AT 1335. DAUGHTER AT BEDSIDE.
== END 2022-01-23 13:37 | disposition home health service (06) | DRG 871 ==
LOC: ER 09:47 → MEDS 14:43 → ICUE 01-19 21:02 → MEDS 01-20 15:29
PROVIDERS: Emergency Medicine; Internal Medicine; Radiology Diagnostic Radiology; ADMIT Internal Medicine
PROC: 3E03329 Introduction of Other Anti-infective into Peripheral Vein, Percutaneous Approach (ICD-10-PCS; 2022-01-18)
PROC: 0T9B30Z Drainage of Bladder with Drainage Device, Percutaneous Approach (ICD-10-PCS; principal; 2022-01-20)
PROC: BT101ZZ Fluoroscopy of Bladder using Low Osmolar Contrast (ICD-10-PCS; 2022-01-20)
DX: A40.8 Other streptococcal sepsis (principal); G82.50 Quadriplegia, unspecified; N17.9 Acute kidney failure, unspecified; N39.0 Urinary tract infection, site not specified; G45.9 Transient cerebral ischemic attack, unspecified; R47.01 Aphasia; E87.1 Hypo-osmolality and hyponatremia; Z66 Do not resuscitate; D64.9 Anemia, unspecified; Z20.822 Contact with and (suspected) exposure to COVID-19; G35 Multiple sclerosis; F32.A Depression, unspecified; A41.59 Other Gram-negative sepsis; R33.9 Retention of urine, unspecified; E03.9 Hypothyroidism, unspecified; E78.00 Pure hypercholesterolemia, unspecified; E78.1 Pure hyperglyceridemia; E66.9 Obesity, unspecified; I10 Essential (primary) hypertension; N32.0 Bladder-neck obstruction; E86.9 Volume depletion, unspecified; Z74.01 Bed confinement status; Z88.0 Allergy status to penicillin; Z88.8 Allergy status to other drugs, medicaments and biological substances; Z79.02 Long term (current) use of antithrombotics/antiplatelets; Z79.891 Long term (current) use of opiate analgesic; Z79.899 Other long term (current) drug therapy; Z90.49 Acquired absence of other specified parts of digestive tract; Z98.890 Other specified postprocedural states; Z87.891 Personal history of nicotine dependence; Z68.31 Body mass index [BMI] 31.0-31.9, adult
CPT/HCPCS: 36415; 51102; 51702; 70450; 71045; 80053; 81001; 82607; 82746; 83605; 83735; 84443; 85025; 85027; 87040; 87077; 87086; 87186; 92526; 92610; 93005; 93010; 94760; 94762; 96374; 99152; 99153; 99283-25; 99285-25; A9270; C1729; C1769; C1894; J0696; J1644; J1956; J2250; J3010; J7030; Q0175; Q9967; U0004

== ENCOUNTER 2022-02-04 09:50 | Inpatient (IN) | payer MEDICARE, OTHER ==
[~2022-02-04] VITALS: Ht 167.6 cm; Wt 71.4 kg
[~2022-02-04 09:50] MED LIST changes: +CIPR500 PO; +DICLOFENAC SOD100 G1 TOP; +DILT120 PO; +FUROSEMIDE20 MG PO; +NYSTOP15 GM TOP; +Oxycodone HCl20 M1 PO; +PREGABALIN25 MG PO
[2022-02-04 10:56] LABS: BASOPHILS ABSOLUTE AUTO 0.06 K/mm3 (0.00-0.23); BASOPHILS PERCENT AUTO 1 % (0-2); EOSINOPHILS ABSOLUTE AUTO 0.28 K/mm3 (0.00-0.68); EOSINOPHILS PERCENT AUTO 3 % (0-6); Hematocrit 28.1 % (37.0-53.0); Hemoglobin 8.6 g/dL (13.5-17.5); IMMATURE GRAN ABSOLUTE AUTO 0.03 K/mm3 (0.00-0.10); IMMATURE GRAN PERCENT AUTO 0 % (0-1); LYMPHOCYTES ABSOLUTE AUTO 1.77 K/mm3 (0.84-5.20); LYMPHOCYTES PERCENT AUTO 20 % (21-46); MONOCYTES PERCENT AUTO 7 % (4-13); Mean Corpuscular HGB 27.2 pg (26.0-34.0); Mean Corpuscular HGB Conc 30.6 g/dL (31.5-36.5); Mean Corpuscular Volume 89 fL (80-100); Mean Platelet Volume 9.4 fL (9.1-12.4); NEUTROPHILS PERCENT AUTO 69 % (41-73); Platelet Count 325 K/mm3 (150-400); RDW Coefficient Variation 16.6 % (11.7-14.2); Red Blood Cell Count 3.16 M/mm3 (4.30-5.90); White Blood Cell Count 8.94 K/mm3 (4.00-11.30)
[2022-02-04 11:06] LABS: International Normalized Ratio 1.08; Prothrombin Time Results 11.3 Sec (9.7-11.5)
[2022-02-04 11:10] LABS: Albumin, Blood 2.4 g/dL (3.4-5.0); Albumin/Globulin Ratio 0.5 (0.8-1.8); Bilirubin, Direct 0.2 mg/dL (0.0-0.3); Bilirubin, Indirect 0.3 mg/dL (0.1-0.7); Bilirubin, Total 0.5 mg/dL (0.1-1.0); Bun/Creatinine Ratio 16.2 (12.0-20.0); Calcium, Blood 8.5 mg/dL (8.5-10.1); Creatinine, Blood 0.43 mg/dL (0.60-1.20); Magnesium, Blood 2.4 mg/dL (1.6-2.4); Phosphorus, Blood 3.4 mg/dL (2.5-4.9); Potassium, Blood 3.7 mmol/L (3.5-5.5); Total Protein, Blood 7.4 g/dL (6.4-8.2)
[2022-02-04 13:40] LABS: Influenza A, PCR NEGATIVE (NEGATIVE); Influenza B, PCR NEGATIVE (NEGATIVE); Resp Syncytial Virus, PCR NEGATIVE (NEGATIVE); SARS-Cov-2 (COVID-19) PCR, MMC NEGATIVE (NEGATIVE)
[2022-02-05] MEDS ORDERED: PERP8 PO ×2 (00:02→00:05)
[2022-02-05 05:13] LABS: BASOPHILS ABSOLUTE AUTO 0.05 K/mm3 (0.00-0.23); BASOPHILS PERCENT AUTO 1 % (0-2); EOSINOPHILS ABSOLUTE AUTO 0.21 K/mm3 (0.00-0.68); EOSINOPHILS PERCENT AUTO 4 % (0-6); Hemoglobin 7.7 g/dL (13.5-17.5); IMMATURE GRAN ABSOLUTE AUTO 0.02 K/mm3 (0.00-0.10); IMMATURE GRAN PERCENT AUTO 0 % (0-1); LYMPHOCYTES ABSOLUTE AUTO 2.02 K/mm3 (0.84-5.20); LYMPHOCYTES PERCENT AUTO 35 % (21-46); MONOCYTES ABSOLUTE AUTO 0.41 K/mm3 (0.16-1.47); MONOCYTES PERCENT AUTO 7 % (4-13); Mean Corpuscular HGB 27.9 pg (26.0-34.0); Mean Corpuscular HGB Conc 30.8 g/dL (31.5-36.5); Mean Corpuscular Volume 91 fL (80-100); Mean Platelet Volume 9.2 fL (9.1-12.4); NEUTROPHILS PERCENT AUTO 52 % (41-73); Platelet Count 296 K/mm3 (150-400); RDW Coefficient Variation 16.8 % (11.7-14.2); RDW Standard Deviation 55.2 fL (35.1-46.3); Red Blood Cell Count 2.76 M/mm3 (4.30-5.90); White Blood Cell Count 5.71 K/mm3 (4.00-11.30)
--- NOTE | 2022-02-05 05:53 | NUR ---
NOC SHIFT SUMMARY PT SLEPT WELL OVERNIGHT, ORIENTED X4, BEDBOUND AND QUADRIPLEGIC AT BASELINE. SOME FEELING IN FINGERTIPS, GENERALIZED PAIN TREATED WITH HOME DOSES OF MEDICATION. VSS PER PT TREND, ON RA. SR ON TELEMETRY. REFUSING SOME Q2 TURNS - ORIENTED ON IMPORTANCE. ABD PAD TO L SCROTUM/GROIN WITH MINIMAL OUTPUT OVERNIGHT. TAUT SCROTAL SACK W/TEARING ALONG MIDLINE. CONTRACTURED IN ALL EXTREMITIES, FOOT DROP NOTED TO BILATERAL FEET. HEELS ELEVATED OFF PILLOWS. WILL CONTINUE TO MONITOR AND PASS ON TO DAY RN
[2022-02-05 06:00] LABS: Albumin, Blood 2.2 g/dL (3.4-5.0); Anion Gap 5 mmol/L (6-16); Blood Urea Nitrogen 4 mg/dL (8-24); Bun/Creatinine Ratio 9.2 (12.0-20.0); CO2, Blood 28 mmol/L (21-32); Calcium, Blood 8.2 mg/dL (8.5-10.1); Chloride, Blood 105 mmol/L (98-108); Creatinine, Blood 0.43 mg/dL (0.60-1.20); Glomerular Filtration Rate 125 (60-); Glucose, Blood 101 mg/dL (70-99); Phosphorus, Blood 3.3 mg/dL (2.5-4.9); Potassium, Blood 3.4 mmol/L (3.5-5.5); Sodium, Blood 138 mmol/L (136-145)
--- NOTE | 2022-02-05 14:58 | NUR ---
Echocardiogram completed. Dr. Simental's office called to read LAINE.
--- NOTE | 2022-02-05 17:37 | NUR ---
SHIFT SUMMARY; ASSUMED CARE AT 0700. A/A/OX3. HX OF MS WITH QUADRAPALEGIA. 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 Q2 REPOSITIONING. PILLOWS MAINTAINED UNDER EXTREMETIES. ASSISTANCE WITH PO INTAKE. BED BATH TODAY. ABD PAIN CHANGED SEVERAL TIMES BETWEEN LEFT LEG AND SCROTUM. PURULENT CREAM COLORED DRAINAGE FROM OPEN SORE TO SCROTUM. VSS, WILL CONTINUE TO MONITOR AND TREAT UNTIL CHANGE OF SHIFT.
[2022-02-06 05:08] LABS: BASOPHILS ABSOLUTE AUTO 0.06 K/mm3 (0.00-0.23); BASOPHILS PERCENT AUTO 2 % (0-2); EOSINOPHILS ABSOLUTE AUTO 0.27 K/mm3 (0.00-0.68); EOSINOPHILS PERCENT AUTO 7 % (0-6); Hematocrit 24.8 % (37.0-53.0); Hemoglobin 7.5 g/dL (13.5-17.5); IMMATURE GRAN ABSOLUTE AUTO 0.03 K/mm3 (0.00-0.10); IMMATURE GRAN PERCENT AUTO 1 % (0-1); LYMPHOCYTES ABSOLUTE AUTO 1.76 K/mm3 (0.84-5.20); LYMPHOCYTES PERCENT AUTO 43 % (21-46); MONOCYTES ABSOLUTE AUTO 0.33 K/mm3 (0.16-1.47); MONOCYTES PERCENT AUTO 8 % (4-13); Mean Corpuscular HGB 27.4 pg (26.0-34.0); Mean Corpuscular HGB Conc 30.2 g/dL (31.5-36.5); Mean Corpuscular Volume 91 fL (80-100); Mean Platelet Volume 9.5 fL (9.1-12.4); NEUTROPHILS ABSOLUTE AUTO 1.68 K/mm3 (1.96-9.15); NEUTROPHILS PERCENT AUTO 41 % (41-73); Platelet Count 282 K/mm3 (150-400); RDW Coefficient Variation 16.4 % (11.7-14.2); RDW Standard Deviation 54.2 fL (35.1-46.3); Red Blood Cell Count 2.74 M/mm3 (4.30-5.90); White Blood Cell Count 4.13 K/mm3 (4.00-11.30)
[2022-02-06 05:33] LABS: Bun/Creatinine Ratio 9.1 (12.0-20.0); Creatinine, Blood 0.44 mg/dL (0.60-1.20); Potassium, Blood 3.6 mmol/L (3.5-5.5)
--- NOTE | 2022-02-06 06:39 | NUR ---
NOC SHIFT SUMMARY PT ORIENTED X4, QUADRIPLEGIC AT BASELINE. PT DEVELOPED LOW BPS OVERNIGHT, DR. NORTON NOTIFIED AND 500ML FLUID BOLUS GIVEN X1. PT REMAINED ASYMPTOMATIC W/GOOD PERFUSION AND COLORING. DOUBLE CHECKED W/MANUAL BLOOD PRESSURE AND HAD SIGNIFICANTLY HIGHER READING. MANUAL BP UTILIZED THE REST OF THE SHIFT. COMPLAINTS OF MOORE X1, RESOLVED W/PO TYLENOL. SP CATH TO DD, DRAINING YELLOW/CLEAR URINE. FAMILY REMAINED AT BEDSIDE THROUGHOUT THE NIGHT. WILL CONTINUE TO MONITOR AND PASS ON TO DAY RN
--- NOTE | 2022-02-06 09:57 | NUR ---
CARE ASSUMPTION THIS RN ASSUMED CARE FROM JEREMIAH RN AT 0700. VSS. TELE SR 80S. PATIENT IS ALERT AND ORIENTED X4. PERRLA. PATIENT IS A QUADRAPLEGIC AT BASELINE AND IS UNABLE TO MOVE EXTREMITIES. PATIENT HAS CONTRACTURES OF EXTREMITIES, AND BILATERAL FOOT DROOP WITH TOES POINTED OUT. PATIENT REPROTS PAIN IN RIGHT ARM THIS AM. THIS RN PROVIDED PAIN MEDICATION AND REPOSITIONING. PATIETN REPROTS NO CHEST PAIN/PRESSURE. STRONG RADAIL PULSES BILATERALLY AND FAINT PEDIS PULSES BILATERALLY. +2 EDEMA BILATERAL HANDS AND FEET AND GENERALIZED EDEMA T/O. PATIENT ABD IS ACTIVE NONTENDER AND SOFT. PATIENT HAS A SUPRA-PUBIC CATH IN PLACE, AT BASELINE, AND IS DRAINING WITH GRAVITY CLEAR YELLOW URINE. PATIENT HAS A LEFT SCROTAL WOUND THAT OOZING OUT PUS. BANDAGED CHANGED AND SITE CLEANED. BRUISIING SCATTERED ON BILATERAL LOWER EXTREMITIES. SKIN HAS PALE APPERANCE. OTHERWISE CLEAN DRY AND INTACT. SEE SHIFT ASSESSMENT FOR FURTHER DETAILS. MD JEROME IN TO SEE PATIENT THIS AM AND DISCUSSED CODE STATUS, D/T PATIENT PERVIOUSLY BEING A DNR. AFTER A DISCUSSION WITH THE PATIENT, PATIENT IS CHANGED FROM A FULL CODE TO A DNI. MD BARROW AND PREMA IN TO SEE PATIENT THIS AM. DISCUSSED PLAN OF CARE. [facility]WAITING [facility] AND WILL DO REPEAT HGB AND HCT DUE TO A DECREASE IN THESE LEVELS. NO SIGNS OF BLEEDING FROM THE PATIENT AT THIS TIME. AWAITING FOR PATIENT TO HAVE A BOWEL MOVEMENT. AM CARE DONE BY THIS RN. ORAL CARE AND RANGE OF MOTION. PATIENT REFUSED TO BE REPOSITIONED THIS AM STATING HE WAS COMFORTABLE IN HIS CURRENT POSITION. PATIENT WILBER CASTRO IS AT BEDSIDE WHO HELPS ASSIST WITH HIS CARE. PATIENT IS A FEEDER. PATIENT TAKES MEDICATIONS TWO AT A TIME IN [place]. PATIENT IS ABLE TO MAKE ALL NEEDS KNOWN. CALL LIGHT WITHIN REACH. BED IN LOWEST POSITION. PLAN OF CARE UP TO DATE.
[2022-02-06 12:33] LABS: Percent Saturation 30.2 % (20.0-50.0)
--- NOTE | 2022-02-06 16:49 | NUR ---
SHIFT SUMMARY NO ACUTE CHANGES THIS SHIFT. MDS REACHED OUT TO HOSPITAL TO SEE ABOUT BEING ON A WAITLIST DUE TO [facility] [place] [place] STATING THERE WASN'T A WAITLIST AND PATIENT WAS ON ONE. BLUEPRINT PROCESSOR CALLED MULTIPLE FACILITYS WELL DID PRIMARY MD. AWAITING TO HEAR BACK. PATIENT REPOSITIONED THROUGHOUT THE SHIFT AND ADLS DONE. PATIENT FAMILY AT BEDSIDE DURING THE DAY AND HELPED HIM EAT HIS MEALS. FAMILY UPDATED ON PLAN OF CARE. NEURO REMAINS INTACT. CALL LIGHT WITHIN REACH AND BED IN LOWEST POSITION. WILL CONTINUE TO MONITOR AND PROVIDE CARE UNTIL HAND OFF WITH NEXT SHIFT.
--- NOTE | 2022-02-06 17:46 | NUR ---
TRANSFER TO [facility] IN [place] THIS RN GAVE REPORT TO CARL STEVENSON AT [facility] AT 1730. THIS RN UPDATED THE FAMILY THAT THERE IS A BED AVAILABLE AND THAT THE PATIENT WILL BE TRANSFERED TO THE HOSPITAL. PATIENT AND PATIENT FAMILY VERABLIZED UNDERSTANDING. PATIENT IS IN NO DISTRESS. AWAITING FOR THE AMBULANCE TO COME TO PICK THE PATIENT UP. ONCE THEY ARRIVE THIS RN WILL CALL THE HOSPITAL AGAIN TO INFORM THEM SO THEY HAVE A BETTER TIME FRAME WHEN THE PATIENT WILL BE ARRIVING. PATIENT BELONGINGS GATHERED. WILL CONTINUE TO MONITOR AND PROVIDE CARE UNTIL HAND OFF.
--- NOTE | 2022-02-06 18:40 | NUR ---
PATIENT LEFT WITH AMBULANCE TRANSPORT PATIENT LEFT IN NO DISTRESS. [facility] HAS ALL PATIENT BELONGINGS. PATIENT TRANSFERED OVER TO [facility] VIA [facility]. THIS RN CALLED [facility] TO INFORM THEM THAT THE PATIENT IS LEAVING WITH THE TRANSPORT.
== END 2022-02-06 18:40 | disposition short-term general hospital (02) | DRG 727 ==
LOC: ER 09:50 → PCU 17:29
PROVIDERS: Emergency Medicine; Family Medicine; ADMIT Internal Medicine
PROC: 02HV33Z Insertion of Infusion Device into Superior Vena Cava, Percutaneous Approach (ICD-10-PCS; principal; 2022-02-04)
DX: N49.3 Fournier gangrene (principal); G92.8 Other toxic encephalopathy; R53.2 Functional quadriplegia; Z66 Do not resuscitate; Z74.01 Bed confinement status; Z20.822 Contact with and (suspected) exposure to COVID-19; G35 Multiple sclerosis; E03.9 Hypothyroidism, unspecified; E78.1 Pure hyperglyceridemia; F25.0 Schizoaffective disorder, bipolar type; E66.9 Obesity, unspecified; Z68.25 Body mass index [BMI] 25.0-25.9, adult; Z88.0 Allergy status to penicillin; Z88.8 Allergy status to other drugs, medicaments and biological substances; Z98.1 Arthrodesis status; Z90.49 Acquired absence of other specified parts of digestive tract; Z87.891 Personal history of nicotine dependence; Z79.899 Other long term (current) drug therapy
CPT/HCPCS: 0241U; 36415; 36556; 71045; 74177; 80048; 80053; 80069; 82248; 83540; 83550; 83605; 83735; 84100; 85025; 85610; 85730; 87040; 93005; 93010; 93306; 96365-59; 96366-59; 96367-59; 96375-59; 99285-25; A9270; C1751; J0696; J0744; J1650; J1956; J3370; J7030; J7040; J7050; J7060; Q0175; Q9967

== ENCOUNTER → 2022-04-13 | Outpatient (CLI) | payer MEDICARE, OTHER ==
[~2022-04-13] MED LIST changes: +PERP8 PO
[2022-04-13 17:35] LABS: U Amphetamine Screen Not Detected; U Barbituate Screen Not Detected; U Benzodiazapine Screen Not Detected; U Buprenorphine Screen Not Detected; U Cannabinoids Screen Not Detected; U Cocaine Screen Not Detected; U Methadone Screen Not Detected; U Methamphetamine Screen Not Detected; U Opiates Screen DETECTED; U Oxycodone Screen DETECTED; U Phencyclidine Screen Not Detected; U Propoxyphene Screen Not Detected
== END | disposition home or self-care (01) ==
LOC: LAB 10:12 → LAB SHORT 10:12
PROVIDERS: Family Medicine
DX: Z79.899 Other long term (current) drug therapy (principal)

== ENCOUNTER → 2022-04-23 | Outpatient (CLI) | payer MEDICARE, OTHER ==
[2022-04-23 12:32] LABS: BASOPHILS ABSOLUTE AUTO 0.03 K/mm3 (0.00-0.23); BASOPHILS PERCENT AUTO 1 % (0-2); EOSINOPHILS ABSOLUTE AUTO 0.33 K/mm3 (0.00-0.68); EOSINOPHILS PERCENT AUTO 5 % (0-6); Hematocrit 38.7 % (37.0-53.0); Hemoglobin 12.2 g/dL (13.5-17.5); IMMATURE GRAN ABSOLUTE AUTO 0.01 K/mm3 (0.00-0.10); IMMATURE GRAN PERCENT AUTO 0 % (0-1); LYMPHOCYTES ABSOLUTE AUTO 1.89 K/mm3 (0.84-5.20); LYMPHOCYTES PERCENT AUTO 31 % (21-46); MONOCYTES ABSOLUTE AUTO 0.43 K/mm3 (0.16-1.47); MONOCYTES PERCENT AUTO 7 % (4-13); Mean Corpuscular HGB 29.3 pg (26.0-34.0); Mean Corpuscular HGB Conc 31.5 g/dL (31.5-36.5); Mean Corpuscular Volume 93 fL (80-100); Mean Platelet Volume 10.8 fL (9.1-12.4); NEUTROPHILS ABSOLUTE AUTO 3.38 K/mm3 (1.96-9.15); NEUTROPHILS PERCENT AUTO 56 % (41-73); Platelet Count 213 K/mm3 (150-400); RDW Standard Deviation 47.8 fL (35.1-46.3); Red Blood Cell Count 4.16 M/mm3 (4.30-5.90); White Blood Cell Count 6.07 K/mm3 (4.00-11.30)
[2022-04-23 12:40] LABS: Cholesterol 137 mg/dL (50-200); HDL Cholesterol 39 mg/dL (>39)
== END | disposition home or self-care (01) ==
LOC: LAB SHORT 09:55 → LAB 09:55
PROVIDERS: Family Medicine
DX: E78.2 Mixed hyperlipidemia (principal); E03.9 Hypothyroidism, unspecified; G89.29 Other chronic pain
CPT/HCPCS: 82465; 83718; 84443; 85025

== ENCOUNTER → 2022-06-18 | Outpatient (CLI) | payer MEDICARE, OTHER ==
[2022-06-18 17:12] LABS: Albumin, Blood 3.3 g/dL (3.4-5.0); Albumin/Globulin Ratio 0.7 (0.8-1.8); Bilirubin, Total 0.3 mg/dL (0.1-1.0); Bun/Creatinine Ratio 26.1 (12.0-20.0); Calcium, Blood 8.7 mg/dL (8.5-10.1); Creatinine, Blood 0.46 mg/dL (0.60-1.20); Globulin, Blood 4.5 g/dL (2.2-4.0); Potassium, Blood 3.5 mmol/L (3.5-5.5); Total Protein, Blood 7.8 g/dL (6.4-8.2)
== END | disposition home or self-care (01) ==
LOC: LAB SHORT 14:50
PROVIDERS: Family Medicine
DX: G35 Multiple sclerosis (principal); G82.50 Quadriplegia, unspecified
CPT/HCPCS: 80053

== ENCOUNTER 2022-08-16 06:49 | Emergency (ER) | payer MEDICARE, OTHER ==
[~2022-08-16] VITALS: Ht 170.2 cm; Wt 74.8 kg
[2022-08-16 09:11] LABS: Source, Urine Suprapubic Cath
[2022-08-16 09:19] LABS: Bilirubin, Urine Neg (Neg); Blood, Urine 4+ (Neg); Color, Urine Yellow (P-Yellow); Glucose Qualitative, Urine Neg (Neg); Ketones, Urine 1+ (Neg); Leukocyte Esterase, Urine 3+ (Neg); Nitrite, Urine Pos (Neg); Protein, Urine 2+ (Neg); Urobilinogen, Urine NORM (Normal)
[2022-08-16 09:32] LABS: Triple Phosphate Crystals Few /hpf
[2022-08-16 09:33] LABS: Appearance, Urine Cloudy (Clear)
[2022-08-16 09:34] LABS: Bacteria Many /hpf; Squamous Epithelial Cells Rare /hpf (Few); White Blood Cells, Urine TNTC /hpf (0-5)
== END 2022-08-16 09:17 | disposition home or self-care (01) ==
LOC: ER 06:49
PROVIDERS: Emergency Medicine
DX: T83.090A Other mechanical complication of cystostomy catheter, initial encounter (principal); Y84.6 Urinary catheterization as the cause of abnormal reaction of the patient, or of later complication, without mention of misadventure at the time of the procedure; E03.9 Hypothyroidism, unspecified; E78.1 Pure hyperglyceridemia; Z88.0 Allergy status to penicillin; Z88.8 Allergy status to other drugs, medicaments and biological substances; Z79.899 Other long term (current) drug therapy; Z87.891 Personal history of nicotine dependence
CPT/HCPCS: 81001

== ENCOUNTER → 2022-10-20 | Outpatient (CLI) | payer MEDICARE, OTHER | END | disposition home or self-care (01) | LOC: LAB 17:00 → LAB SHORT 17:00 | DX: N39.0 Urinary tract infection, site not specified (principal) | CPT/HCPCS: 87077; 87086; 87186 ==

== ENCOUNTER → 2023-04-07 | Outpatient (CLI) | payer MEDICARE, OTHER | END | disposition home or self-care (01) | LOC: LAB 16:40 → LAB SHORT 16:40 | DX: N39.0 Urinary tract infection, site not specified (principal) | CPT/HCPCS: 87086 ==

== ENCOUNTER → 2023-05-12 | Outpatient (CLI) | payer MEDICARE, OTHER ==
[2023-05-12 15:10] LABS: Albumin, Blood 2.9 g/dL (3.4-5.0); Albumin/Globulin Ratio 0.6 (0.8-1.8); Bilirubin, Total 0.3 mg/dL (0.1-1.0); Bun/Creatinine Ratio 17.5 (12.0-20.0); Calcium, Blood 8.7 mg/dL (8.5-10.1); Creatinine, Blood 0.34 mg/dL (0.60-1.20); Globulin, Blood 4.8 g/dL (2.2-4.0); Potassium, Blood 5.3 mmol/L (3.5-5.5); Total Protein, Blood 7.7 g/dL (6.4-8.2)
== END ==
LOC: LAB SHORT 13:00 → LAB 13:00
PROVIDERS: Family Medicine
DX: Z00.00 Encounter for general adult medical examination without abnormal findings (principal)
CPT/HCPCS: 80053

== ENCOUNTER → 2025-06-06 | Outpatient (CLI) | payer MEDICARE, OTHER ==
[~2025-06-06] MED LIST changes: +SULTRIDS PO
[2025-06-06 17:50] LABS: BASOPHILS ABSOLUTE AUTO 0.06 K/mm3 (0.00-0.23); BASOPHILS PERCENT AUTO 1 % (0-2); EOSINOPHILS ABSOLUTE AUTO 0.52 K/mm3 (0.00-0.68); EOSINOPHILS PERCENT AUTO 7 % (0-6); Hematocrit 34.8 % (37.0-53.0); Hemoglobin 10.8 g/dL (13.5-17.5); IMMATURE GRAN ABSOLUTE AUTO 0.02 K/mm3 (0.00-0.10); IMMATURE GRAN PERCENT AUTO 0 % (0-1); LYMPHOCYTES ABSOLUTE AUTO 2.34 K/mm3 (0.84-5.20); LYMPHOCYTES PERCENT AUTO 32 % (21-46); MONOCYTES ABSOLUTE AUTO 0.41 K/mm3 (0.16-1.47); MONOCYTES PERCENT AUTO 6 % (4-13); Mean Corpuscular HGB Conc 31.0 g/dL (31.5-36.5); Mean Corpuscular Volume 87 fL (80-100); NEUTROPHILS ABSOLUTE AUTO 3.87 K/mm3 (1.96-9.15); NEUTROPHILS PERCENT AUTO 54 % (41-73); NRBC ABSOLUTE 0.00 K/mm3 (0.00-0.02); NRBC Auto 0.0 /100 WBC (0.0-0.2); Platelet Count 222 K/mm3 (150-400); RDW Coefficient Variation 15.2 % (11.7-14.2); RDW Standard Deviation 48.6 fL (35.1-46.3)
[2025-06-06 20:51] LABS: Alanine Aminotransfer (ALT/SGP 21 U/L (12-78); Albumin, Blood 2.8 g/dL (3.4-5.0); Albumin/Globulin Ratio 0.7 (0.8-1.8); Anion Gap 5 mmol/L (3-11); Aspartate Aminotrans (AST/SGOT 12 U/L (12-37); Bilirubin, Total 0.2 mg/dL (0.1-1.0); Blood Urea Nitrogen 9 mg/dL (8-24); CHOL/HDL RATIO 2.7; CO2, Blood 29 mmol/L (21-32); Calcium, Blood 8.4 mg/dL (8.5-10.1); Chloride, Blood 107 mmol/L (98-108); Cholesterol 104 mg/dL (50-200); Creatinine, Blood 0.39 mg/dL (0.60-1.20); Globulin, Blood 4.1 g/dL (2.2-4.0); Glucose, Blood 121 mg/dL (70-99); HDL Cholesterol 38 mg/dL (>39); LDL/HDL RATIO 0.8; Low Density Lipoprotein Chol 31 mg/dL (0-110); PSA, %Free 13.2 %; PSA, Free 0.080 ng/mL; Potassium, Blood 3.7 mmol/L (3.5-5.5); Prostate Specific Antigen 0.608 ng/mL (0.000-4.000); Sodium, Blood 137 mmol/L (136-145); Total Protein, Blood 6.9 g/dL (6.4-8.2); Triglycerides 173 mg/dL (30-160); Very Low Density Lipoprot Chol 34 mg/dL (6-32)
== END ==
LOC: LAB 16:46 → LAB SHORT 16:46
PROVIDERS: Nurse Practitioner Family
DX: E55.9 Vitamin D deficiency, unspecified (principal); Z79.899 Other long term (current) drug therapy
CPT/HCPCS: 80053; 80061; 82306; 84153; 84154; 84439; 84481; 85025